=== PATIENT | male | born 1985 | race African-American/Black ===

== ENCOUNTER 2017-09-27 15:34 | Emergency (ER) | payer BC ==
[2017-09-27 15:59] VITALS: BP 146/80; PULSE 92; TEMP 98.3; BMI 25.1
--- NOTE | 2017-09-27 16:02 | PDOC ---
Rapid Medical Evaluation Chief Complaint: Abscess Boil Time Seen by Provider: 09/27/17 16:00 Medical Evaluation: Allergies Allergy/AdvReac Type Severity Reaction Status Date / Time shellfish derived Allergy Verified 09/27/17 15:56 Vital Signs Temp Pulse Resp BP Pulse Ox 98.3 F 92 H 18 146/80 96 09/27/17 15:56 09/27/17 15:56 09/27/17 15:56 09/27/17 15:56 09/27/17 15:56 09/27/17 16:01 Patient c/o: bump to buttock, no fever, no hx of mrsa Patient on brief exam: noted left buttock erythematous papule, no drainage Patient ordered for: none Patient to proceed to the ED Discharge Disposition - Diagnosis Abscess - Referrals - Patient Instructions - Post Discharge Activity
[2017-09-27] MEDS ORDERED: LIDOCAINE HCL 1%, 10 MG/ML (20ML VIAL) ONE (16:28)
[2017-09-27] MEDS ORDERED: LIDOCAINE HCL 1%, 10 MG/ML (50 mL VIAL) SQ ONE (16:28)
--- NOTE | 2017-09-27 17:02 | PDOC ---
History of Present Illness - General Chief Complaint: Abscess Boil Stated Complaint: ABSCESS BOIL Time Seen by Provider: 09/27/17 16:00 - History of Present Illness Initial Comments: 32-year-old male without comorbidities presents for a painful area on his left buttocks for the last week. He has no other symptoms besides localized pain. 09/27/17 16:57 Past History - Past Medical History Allergies/Adverse Reactions: Allergies Allergy/AdvReac Type Severity Reaction Status Date / Time shellfish derived Allergy Verified 09/27/17 15:56 Home Medications: Ambulatory Orders Cephalexin [Keflex] 500 mg PO QID #40 capsule 09/27/17 Ibuprofen [Motrin -] 600 mg PO TID #30 tablet 09/27/17 Sulfamethoxazole/Trimethoprim [Bactrim Ds -] 1 tab PO BID #14 tablet 09/27/17 Asthma: Yes COPD: No - Suicide/Smoking/Psychosocial Hx Smoking History: Never smoked Review of Systems - Review of Systems Integumentary: Yes: See HPI, Lesions All Other Systems: Reviewed and Negative *Physical Exam - Vital Signs Last Vital Signs Temp Pulse Resp BP Pulse Ox 98.3 F 92 H 18 146/80 96 09/27/17 15:56 09/27/17 15:56 09/27/17 15:56 09/27/17 15:56 09/27/17 15:56 - Physical Exam Comments: There is an erythemic, indurated, fluctuant mass on the right buttocks about 3 cm in length, the abscess does not communicate with the anal verge. It is adjacent to the rectal margin and extends anteriorly about 2 cm. 09/27/17 16:57 ED Treatment Course - Medications Given in the ED: ED Medications Discontinued Medications Generic Name Dose Route Start Last Admin Trade Name Freq PRN Reason Stop Dose Admin Lidocaine HCl 20 ml 09/27/17 16:28 09/27/17 16:30 Xylocaine 1% SQ 09/27/17 16:29 20 ml ONCE ONE Administration Medical Decision Making - Medical Decision Making Under aseptic technique 15 mL of lidocaine was used for anesthesia. An 11 blade was used to superficially nicked the abscess a large amount of purulent material was expressed and the wound was deloculated. The incision of the abscess was done medially opposite the rectal margin. The abscess was packed with quarter-inch iodoform and a dry sterile dressing was placed. 09/27/17 17:01 *DC/Admit/Observation/Transfer Diagnosis at time of Disposition: Abscess - Discharge Dispostion Disposition: HOME Condition at time of disposition: Stable Decision to Admit order: No - Prescriptions Prescriptions: Cephalexin [Keflex] 500 mg PO QID #40 capsule Ibuprofen [Motrin -] 600 mg PO TID #30 tablet Sulfamethoxazole/Trimethoprim [Bactrim Ds -] 1 tab PO BID #14 tablet - Referrals Referrals: Meera Bertrand MD [Staff Physician] - - Patient Instructions Printed Discharge Instructions: DI for Anal Abscess Additional Instructions: Leave the dressing on for the next 48 hours. Please keep the area clean and dry. Please take the antibiotics as directed. After 48 hours you may remove the dressing and wash with soap and water and cover it with a dry gauze. If you have a bowel movement please White clean away from the area of the abscess and shower immediately using warm soap and water. Return to the emergency room should her symptoms worsen please follow-up with general surgery in 1-2 days. Return to the emergency room in 2 days for packing removal and further evaluation.I've also given you medication for pain. Please take it with food 3 times a day as directed if it bothers her stomach plea stop it. - Post Discharge Activity
== END 2017-09-27 17:17 | disposition home or self-care (01) ==
LOC: JERFT 15:34
PROC: 0J990ZZ Drainage of Buttock Subcutaneous Tissue and Fascia, Open Approach (ICD-10-PCS; principal; 2017-09-27)
DX: L02.31 Cutaneous abscess of buttock (principal)
CPT/HCPCS: 87070; 87186; 87205; 99281-25

== ENCOUNTER 2017-10-04 19:05 | Emergency (ER) | payer BC ==
[2017-10-04 19:18] VITALS: BP 133/70; PULSE 68; TEMP 98.2; BMI 24.3
--- NOTE | 2017-10-04 19:29 | PDOC ---
History of Present Illness - General Chief Complaint: Revisit,Wound Recheck Stated Complaint: REVISIT/WOUND CHECK - History of Present Illness Initial Comments: Patient returns for follow-up for wound check he has no issues is almost done with his antibiotics. 10/04/17 19:27 Past History - Past Medical History Allergies/Adverse Reactions: Allergies Allergy/AdvReac Type Severity Reaction Status Date / Time shellfish derived Allergy Verified 09/29/17 15:48 Home Medications: Ambulatory Orders Cephalexin [Keflex] 500 mg PO QID #40 capsule 09/27/17 Ibuprofen [Motrin -] 600 mg PO TID #30 tablet 09/27/17 Sulfamethoxazole/Trimethoprim [Bactrim Ds -] 1 tab PO BID #14 tablet 09/27/17 Asthma: Yes COPD: No - Suicide/Smoking/Psychosocial Hx Smoking History: Never smoked Review of Systems - Review of Systems All Other Systems: Reviewed and Negative *Physical Exam - Vital Signs Last Vital Signs Temp Pulse Resp BP Pulse Ox 98.2 F 68 18 133/70 100 10/04/17 19:15 10/04/17 19:15 10/04/17 19:15 10/04/17 19:15 10/04/17 19:15 - Physical Exam Comments: 10/04/17 19:27 There is no erythema warmth or fluctuance in the area. It is nontender and there is no sensitivity. His abscesses basically resolved. *DC/Admit/Observation/Transfer Diagnosis at time of Disposition: Wound check, abscess - Discharge Dispostion Disposition: HOME Condition at time of disposition: Stable Decision to Admit order: No - Referrals - Patient Instructions Additional Instructions: Return to the emergency room should symptoms come back otherwise finish her antibiotics and follow up as needed. - Post Discharge Activity
== END 2017-10-04 20:02 | disposition home or self-care (01) ==
LOC: JERFT 19:05
DX: Z48.01 Encounter for change or removal of surgical wound dressing (principal)
CPT/HCPCS: 99281-25